=== PATIENT | male | born 1945 | race Caucasian/White ===

== ENCOUNTER 2023-08-31 19:45 | Emergency (ER) | payer MEDICARE, OTHER ==
[~2023-08-31] VITALS: Ht 175.3 cm; Wt 102.1 kg
[~2023-08-31 19:45] MED LIST: ATORVASTATIN CA20 MG PO; METFORMIN500 M2 PO; SG ASA LOW81 M1 PO; SYNTHROID150 MCG PO; TAMSULOSIN HCL0.4 MG PO; ZYRTEC10 MG PO
[2023-08-31 19:59] VITALS: BP 152/72
[2023-08-31] MEDS ORDERED: TOPROL XL50 MG PO (20:19)
[2023-08-31] MEDS ORDERED: ELIQUIS5 MG PO (20:20)
[2023-08-31] MEDS ORDERED: OXYBUTYNIN CHLOR5 M2 (20:20)
[2023-08-31] MEDS ORDERED: VITAMIN B-121000 MCG PO (20:21)
[2023-08-31] MEDS ORDERED: MOUNJARO2.5 MG (20:22)
[2023-08-31 20:32] LABS: BASO% 0.4 % (0-3); HEMATOCRIT 38.7 % (39.0-50.0); HEMOGLOBIN 12.3 g/dl (14.0-18.0); LYMPH% 19.8 % (15-41); MEAN CELL VOLUME 94.9 fL CALC (80.0-100.0); MEAN CORPUSCULAR HGB 30.1 pG CALC (26.0-32.0); MEAN CORPUSCULAR HGB CONC 31.8 g/dL CAL (32.0-36.0); MONO% 8.6 % (2-13); NEUT# 6.77 thou/uL (1.82-7.42); NEUT% 67.2 % (42-76); RED BLOOD COUNT 4.08 mill/uL (4.70-6.10)
[2023-08-31 20:36] LABS: URINE BILIRUBIN - DIPSTICK Negative (NEGATIVE); URINE BLOOD DIPSTICK Moderate (NEGATIVE); URINE GLUCOSE - DIPSTICK Negative (NEGATIVE); URINE KETONE Negative (NEGATIVE); URINE LEUK ESTERASE Negative (NEGATIVE); URINE NITRITE - DIPSTICK Negative (Negative); URINE PROTEIN - DIPSTICK 30 mg/dL (NEG-TRACE); URINE UROBILINOGEN - DIPSTICK 0.2 E.U./dL (0.2)
[2023-08-31 20:37] LABS: URINE COLOR Yellow
[2023-08-31 20:45] LABS: URINE RBC 0-2 RBC/hpf (0-5); URINE SQUAMOUS EPITHELIAL CELL FEW EPI/hpf (0-FEW)
[2023-08-31 20:46] VITALS: BP 121/69
[2023-08-31 20:54] LABS: ALBUMIN 4.5 g/dL (3.2-5.0); BILIRUBIN, TOTAL 0.6 mg/dL (0.2-1.3); CREATININE 1.5 mg/dL (0.7-1.3); POTASSIUM 4.5 mmol/l (3.5-5.1); TOTAL PROTEIN 7.5 g/dL (6.3-8.2)
[2023-08-31 21:01] VITALS: BP 122/59
[2023-08-31 21:16] VITALS: BP 122/62
[2023-08-31 21:31] VITALS: BP 122/62; BP 127/64
[2023-08-31] MEDS ORDERED: MIRALAX17 GM PO (21:32)
[2023-08-31] MEDS ORDERED: CITRATE OF MEGNESIA PO (21:32)
== END 2023-08-31 21:50 | disposition home or self-care (01) ==
LOC: ED 19:45
PROVIDERS: Family Medicine
PROC: 0T9B70Z Drainage of Bladder with Drainage Device, Via Natural or Artificial Opening (ICD-10-PCS; principal; 2023-08-31)
DX: R33.9 Retention of urine, unspecified (principal); K59.00 Constipation, unspecified

== ENCOUNTER 2023-09-05 10:47 | Emergency (ER) | payer MEDICARE, OTHER ==
[~2023-09-05] VITALS: Ht 175.3 cm; Wt 85.0 kg
[~2023-09-05 10:47] MED LIST changes: +CITRATE OF MEGNESIA PO; +ELIQUIS5 MG PO; +MIRALAX17 GM PO; +MOUNJARO2.5 MG; +OXYBUTYNIN CHLOR5 M2; +TOPROL XL50 MG PO; +VITAMIN B-121000 MCG PO
[2023-09-05 10:54] VITALS: BP 145/64
[2023-09-05 12:12] VITALS: BP 135/70
[2023-09-05 12:31] VITALS: BP 112/45
[2023-09-05 12:41] VITALS: BP 112/45
== END 2023-09-05 12:50 | disposition home or self-care (01) ==
LOC: ED 10:47
DX: Z46.6 Encounter for fitting and adjustment of urinary device (principal); K59.03 Drug induced constipation; T38.3X5A Adverse effect of insulin and oral hypoglycemic [antidiabetic] drugs, initial encounter; I10 Essential (primary) hypertension; E11.9 Type 2 diabetes mellitus without complications; I48.91 Unspecified atrial fibrillation; E78.5 Hyperlipidemia, unspecified